=== PATIENT | female | born 2000 | race Caucasian/White ===

== ENCOUNTER 2019-04-13 01:42 | Emergency (ER) | payer OTHER, MEDICAID ==
[~2019-04-13] VITALS: Ht 149.9 cm; Wt 45.0 kg
[2019-04-13] MEDS ORDERED: KETOROLAC 30MG/ML VIAL IV STA (03:48)
[2019-04-13] MEDS ORDERED: SODIUM CHLORIDE 0.9% 1,000 ML IV ONE ×2 (03:48→08:15)
[2019-04-13] MEDS ORDERED: ONDANSETRON HCL 4MG/2ML INJ IV STA (03:48)
[2019-04-13 04:08] LABS: HEMOGLOBIN. 12.7 g/dL (12.0-16.0); MEAN CORPUSCULAR HEMOGLOBIN 29.1 pg (28.0-32.0); MEAN PLATELET VOLUME 9.2 fl (7.4-10.4); PLATELET 270 x1000/uL (130-400); RED BLOOD CELL COUNT 4.37 mill/uL (4.2-5.4); RED CELL DISTRIBUTION WIDTH 13.9 % (11.6-14.6)
[2019-04-13 04:09] LABS: CLARITY URINE CLOUDY (CLEAR); COLOR URINE DARK YELLOW (YELLOW); KETONES URINE 1+ (NEGATIVE); LEUKOCYTE ESTERASE URINE TRACE (NEGATIVE); NITRITE URINE NEGATIVE (NEGATIVE); OCCULT BLOOD URINE NEGATIVE (NEGATIVE); PH URINE 6.5 (4.5-8.0); PROTEIN URINE 1+ (NEGATIVE)
[2019-04-13 04:15] LABS: CHLORIDE 105 mEq/L (98-107)
[2019-04-13 04:16] LABS: PROTHROMBIN TIME 10.6 sec (9.6-11.0)
[2019-04-13 04:37] LABS: PLATELET ESTIMATE NORMAL
[2019-04-13] MEDS ORDERED: MORPHINE SULFATE 4 MG/ML CPJ (NOT FOR IM USE) IV STA (05:51)
[2019-04-13] MEDS ORDERED: IOHEXOL-300 100 ML BOTTLE ONE (07:33)
[2019-04-13] MEDS ORDERED: ONDANSETRON HCL 4MG/2ML INJ IV ONE (08:15)
[2019-04-13] MEDS ORDERED: MORPHINE SULFATE 4 MG/ML CPJ (NOT FOR IM USE) IV ONE (08:15)
[2019-04-13 08:33] LABS: HEMATOCRIT. 30.6 % (36.0-48.0); HEMOGLOBIN. 10.3 g/dL (12.0-16.0); MEAN CORPUSCULAR HEMOGLOBIN 29.3 pg (28.0-32.0); MEAN CORPUSCULAR VOLUME 87.2 fL (81.0-99.0); MEAN PLATELET VOLUME 8.5 fl (7.4-10.4); PLATELET 229 x1000/uL (130-400); RED BLOOD CELL COUNT 3.51 mill/uL (4.2-5.4); RED CELL DISTRIBUTION WIDTH 13.7 % (11.6-14.6)
[2019-04-13 09:10] LABS: PLATELET ESTIMATE NORMAL
[2019-04-13 12:22] VITALS: BP 106/65
== END 2019-04-13 12:53 | disposition short-term general hospital (02) ==
LOC: ER 01:42 → EDBEDREQ 10:39 → ER 12:53 → CANBEDREQ 18:01
DX: K66.1 Hemoperitoneum (principal); R58 Hemorrhage, not elsewhere classified; R10.30 Lower abdominal pain, unspecified; Z97.5 Presence of (intrauterine) contraceptive device; Z87.828 Personal history of other (healed) physical injury and trauma; V43.92XA Unspecified car occupant injured in collision with other type car in traffic accident, initial encounter; Y93.89 Activity, other specified; Y92.488 Other paved roadways as the place of occurrence of the external cause
CPT/HCPCS: 36415; 74177; 76830; 76856; 80053; 81003; 81025; 83690; 84702; 85025; 85610; 86850; 86900; 86901; 86920; 93005; 96361; 96374; 96375; 96376; 99285; J1885; J2270; J2405; J7030; J7040; Q9967; Z7610; P9016